=== PATIENT | male | born 1965 | race Caucasian/White ===

== ENCOUNTER 2019-06-12 22:09 | Emergency (ER) | payer MEDICARE, BC ==
[~2019-06-12] VITALS: Ht 177.8 cm; Wt 78.0 kg
[~2019-06-12 22:09] MED LIST: AMPH10CA3 PO; ASPI-992 PO; BACL20TA PO; BACLOFEN PUMP; CLON1TAB PO; DESI25TA16 PO; DIAZ5TAB4 PO; DOXE50CA4 PO; FINA1TAB PO; GABA600T12 PO; INDO-13; INDO75CA3 PO; MEMA10TA PO; MODA200T22 PO; NAPR-1009 PO; NICOTINE; PROP40TA7 PO; TEST90SO TD; [UNRECOGNIZED DRUG - CODE] PO; [UNRECOGNIZED DRUG - OTHER] PO
[2019-06-12 23:58] LABS: BASOPHILS % (AUTO) 0.6 % (0.0-2.0); HEMATOCRIT 44 % (39-51); HEMOGLOBIN 14.4 g/dL (13.5-17.5); LYMPHOCYTES # (AUTO) 0.7 /CMM (0.8-4.8); LYMPHOCYTES % (AUTO) 11.4 % (20.0-44.0); MEAN CORPUSCULAR HGB CONC 33 g/dl (31.0-36.0); MEAN CORPUSCULAR VOLUME 99 fL (80-96); MONOCYTES # (AUTO) 0.4 /CMM (0.1-1.30); PLATELET COUNT (AUTO) 169 /CMM (150-450); RED BLOOD CELL COUNT(AUTO) 4.45 MIL/uL (4.5-6.0); WHITE BLOOD COUNT (AUTO) 6.3 K/uL (4.3-11.0)
[2019-06-13] MEDS ORDERED: IV NS 0.9% 500 ML BAG IV ONE
[2019-06-13] MEDS ORDERED: MORPHINE SULFATE INJ 2 MG/ML DISP.SYRIN IV ONE
[2019-06-13] MEDS ORDERED: ONDANSETRON HCL/PF 4 MG/2 ML VIAL IVP ONE
[2019-06-13] MEDS ORDERED: VANCOMYCIN 1 GM in IV D5W 250 ML IV ONE ×2
[2019-06-13 00:06] LABS: CALCIUM, SERUM 8.9 mg/dL (8.5-10.1); CREATININE 0.9 mg/dL (0.6-1.3); POTASSIUM 3.4 mmol/L (3.5-5.1)
[2019-06-13] MEDS ORDERED: MORPHINE SULFATE INJ 4 MG/ML DISP.SYRIN ONE (00:09)
[2019-06-13] MEDS ORDERED: ONDANSETRON HCL/PF 4 MG/2 ML VIAL ONE (00:09)
[2019-06-13] MEDS ORDERED: VANCOMYCIN 1 GM VIAL ONE (00:09)
--- NOTE | 2019-06-13 00:15 | NUR ---
A/O X4. C/O SWELLING, PAIN AND REDNESS TO RIGHT HAND. BREATHING UNLABORED. IV STARTED TO LAC #18. GAVE FLUIDS AND VANCO IVPB.
[2019-06-13] MEDS ORDERED: KETOROLAC TROMETHAMINE INJ 30 MG/ML VIAL ONE (01:27)
[2019-06-13 01:30] VITALS: BP 125/83
[2019-06-13] MEDS ORDERED: KETOROLAC TROMETHAMINE INJ 30 MG/ML VIAL IV ONE (01:30)
--- NOTE | 2019-06-13 02:14 | NUR ---
Patient does not wish to proceed with medical care recommended by Dr. MASSEY Patient given information related to possible complications, up to and including , which could occur as a result of leaving the hospital at this time. Patient verbalizes understanding of risks involved due to leaving against medical advice. Patient has signed AMA form.
== END 2019-06-13 02:13 | disposition home or self-care (01) ==
LOC: ER 22:14
DX: L03.113 Cellulitis of right upper limb (principal); Z98.890 Other specified postprocedural states; Z88.5 Allergy status to narcotic agent; Z79.82 Long term (current) use of aspirin
CPT/HCPCS: 36415; 73130; 80048; 83605; 85025; 87040 ×2; 96365; 96375; 99284; J1885; J2405; J3370; J2270